=== PATIENT | male | born 1960 ===

== ENCOUNTER 2017-07-31 09:22 | Day surgery (SDC) | payer BC ==
[~2017-07-31] VITALS: Ht 170.2 cm; Wt 65.3 kg
[2017-07-31] VITALS (7 sets, daily range): BP systolic 126–132; BP diastolic 75–89
--- NOTE | 2017-07-31 06:57 | Anethesia Preoperative Eval ---
Anesthesia Pre-op PMH/ROS General Date of Evaluation: Jul 31, 2017 Time of Evaluation: 06:57 Anesthesiologist: kaveh ASA Score: ASA 3 Mallampati Score Class I : Soft palate, uvula, fauces, pillars visible Class II: Soft palate, uvula, fauces visible Class III: Soft palate, base of uvula visible Class IV: Only hard plate visible Mallampati Classification: Class II Surgeon: bruce Diagnosis: gerd Surgical Procedure: egd/colonoscopy Social History: current smoker Family History: no anesthesia problems Allergies: Coded Allergies: No Known Allergies (Unverified , 07/31/17) Medications: see eMAR Past Medical History Gastrointestinal/Genitourinary: Reports: GERD Musculoskeletal/Integumentary: Reports: other - back pain Anesthesia Pre-op Phys. Exam Physician Exam Last Vital Signs Date Time Temp Pulse Resp B/P (MAP) Pulse Ox O2 Delivery O2 Flow Rate FiO2 07/31/17 10:41 98.2 60 20 129/75 99 Room Air Constitutional: NAD Neurologic: CN 2-12 intact Cardiovascular: RRR Respiratory: CTA Gastrointestinal: S/NT/ND Airway Exam Mallampati Score: Class II MO: full Neck: supple TMD: 2fb ROM: full Teeth: intact Anesthesia Pre-op A/P Risk Assessment & Plan Assessment: asa 3 Plan: mac Status Change Before Surgery: No Pre-Antibiotics Drug: NIKO Dietrich Jul 31, 2017 06:57
[2017-07-31] MEDS ORDERED: Propofol 200mg/20ml IV ONE (11:00)
[2017-07-31] MEDS ORDERED: Lidocaine 1% MPF 10mg/ml 5ml ONE (11:00)
--- NOTE | 2017-07-31 11:17 | Pre-Procedure Note/Attestation ---
Pre-Procedure Note/Attestation Complete Prior to Procedure Planned Procedure: not applicable Procedure Narrative: esophagogastroduodenoscopy and colonoscopy Indications for Procedure Pre-Operative Diagnosis: screening colon, GERD Attestation I attest that I discussed the nature of the procedure; its benefits; risks and complications; and alternatives (and the risks and benefits of such alternatives ), prior to the procedure, with the patient (or the patient's legal paper sales representative). I attest that, if there was a reasonable possibility of needing a blood transfusion, the patient (or the patient's legal paper sales representative) was given the [facility] standardized written summary, pursuant to the [place] Blood Safety Act ([place] Health and Safety Code # 1645, as amended). I attest that I re-evaluated the patient just prior to the surgery and that there has been no change in the patient's H&P, except as documented below: SHARDA MOTA Jul 31, 2017 11:17
--- NOTE | 2017-07-31 11:18 | Short Stay Surgery H&P ---
History of Present Illness History of Present Illness Chief Complaint screening colon GERD HPI Va Oconnor is a 57 year old male who was admitted on for Colon Screening, Gerd Patient History Allergies: Coded Allergies: No Known Allergies (Unverified , 07/31/17) PAST MEDICAL HISTORY: Past Surgeries: Social History: Review of Systems Cardiovascular: Reports: no symptoms Skeletal: Reports: no symptoms Gastrointestinal: Reports: gastro esophageal reflux disease Genitourinary: Reports: no symptoms Neurologic: Reports: no symptoms Endocrine: Reports: no symptoms Hematologic: Reports: no symptoms Physical Exam Vital Signs Last Vital Signs Date Time Temp Pulse Resp B/P (MAP) Pulse Ox O2 Delivery O2 Flow Rate FiO2 07/31/17 10:41 98.2 60 20 129/75 99 Room Air Skin: normal HENT: normal Heart: normal Lungs: normal Abdomen: normal Extremities: normal Plan Plan of Care esophagogastroduodenoscopy and colonoscopy Final Diagnosis: Attestation Are the patient's medical conditions optimized for surgery? Attestation Response: yes SHARDA MOTA Jul 31, 2017 11:18
[2017-07-31] MEDS ORDERED: Midazolam 2mg/2ml Inj IVP PRN (11:45)
[2017-07-31] MEDS ORDERED: fentaNYL 100 mcg/2 mL IV PRN (11:45)
[2017-07-31] MEDS ORDERED: Atropine Inj 1mg/10ml Syr IV PRN (11:45)
[2017-07-31] MEDS ORDERED: DiphenhydrAMINE 50mg/ml Inj IVP PRN (11:45)
--- NOTE | 2017-07-31 11:46 | Endoscopy Procedure Note ---
Endoscopy Procedure Note General Indication for Procedure: screening colonocopy, GERD Procedures Performed: EGD, colonoscopy Operative Findings/Diagnosis: gastritis Specimen: yes Pt Tolerated Procedure Well: Yes Estimated Blood Loss: none Anesthesia Anesthesiologist: dane Anesthesia: MAC Inserted Devices Implant(s) used?: No Quality Quality of Bowel Preparation: Excellent Did scope reach the cecum?: Yes Was there any complications?: No GI Core Measures 50 yrs or older w/o bx or poly: No 10yrs. F/U not recommended: Yes If not recommended, why?: Above average risk 10 yrs. F/U needed: Yes 18 years or older w/prev. colo: No SHARDA MOTA Jul 31, 2017 11:46
[2017-07-31] MEDS ORDERED: COD LIVER OIL1 EAC3 PO (11:54)
--- NOTE | 2017-07-31 18:30 | Procedure Note ---
DATE OF PROCEDURE: 07/31/2017 SURGEON: Zac Torres M.D. PROCEDURE: Upper endoscopy with biopsy and colonoscopy with biopsy. ANESTHESIA: Per Dr. Sondra Aldana. INSTRUMENT: Olympus adult flexible upper endoscope and colonoscope. INDICATION: Screening colonoscopy and chronic GERD. REASON FOR PROCEDURE: The procedure, risks, benefits, and possible consequences, including hemorrhage, aspiration, perforation and infection, and alternative treatments, were explained to the patient/legal guardian by Dr. Zac Torres and the patient/legal guardian understood and accepted these risks. DESCRIPTION OF PROCEDURE: After informed consent was obtained and the patient was adequately sedated, Olympus upper endoscope was advanced from mouth into the second portion of the duodenum and retroflexion was performed in the stomach. GE junction was found to be about 35 cm from the incisors. There was no evidence of any obvious esophagitis or esophageal mass. In the stomach, there was diffuse gastritis. There was one very shallow ulceration. There were multiple linear erosions in the upper body of the stomach. Biopsy from antrum and body was obtained to rule out H. pylori infection. The rest of the exam grossly within normal limits. At this time, the upper endoscope was retrieved and the patient was turned over for colonoscopy. First, a rectal exam was performed, which was normal. Then, the scope was advanced from the rectum into the cecum and subsequently into the terminal ileum. Quality of prep was good. The patient had normal TI. There was two polyps in the transverse colon, both very small maybe about 4 mm, removed with the cold biopsy forceps technique. There was no evidence of any diverticulosis. No other pathology was seen. Retroflexion of rectum showed evidence of few medium-sized nonbleeding internal hemorrhoids. SUMMARY OF FINDINGS: 1. One very shallow gastric ulceration with multiple linear erosions in the upper body of the stomach status post biopsy. 2. Two colonic polyp removed, see above for details. 3. Internal hemorrhoids. RECOMMENDATIONS: 1. Followup biopsies and treat accordingly. 2. We will start the patient on Dexilant pending biopsy results. 3. Followup pathology from colonoscopy and repeat colonoscopy in 5 years. Zac Torres M.D. DR: Timothy JOB#: [id number] CC:
--- NOTE | 2017-08-04 08:37 | Cardiology Report ---
APPROVED REPORT EKG Measurement Heart [id number] Normal sinus rhythm Normal ECG
== END 2017-07-31 13:10 | disposition home or self-care (01) ==
LOC: GAS 09:22
DX: Z12.11 Encounter for screening for malignant neoplasm of colon (principal); K21.9 Gastro-esophageal reflux disease without esophagitis; K25.9 Gastric ulcer, unspecified as acute or chronic, without hemorrhage or perforation; K63.5 Polyp of colon; K64.8 Other hemorrhoids; F17.200 Nicotine dependence, unspecified, uncomplicated; K29.50 Unspecified chronic gastritis without bleeding; D12.3 Benign neoplasm of transverse colon
CPT/HCPCS: 43239; 45380; 93005; J2704; 94003; 94150